=== PATIENT | female | born 1955 | race Caucasian/White ===

== ENCOUNTER 2018-07-20 13:12 | Emergency (ER) | payer OTHER ==
[~2018-07-20] VITALS: Ht 162.6 cm; Wt 57.9 kg
[2018-07-20 13:24] VITALS: Ht 162.6 cm; Wt 57.9 kg
[2018-07-20] MEDS ORDERED: morphine 4 MG/ML VIAL IV STA (16:29)
[2018-07-20] MEDS ORDERED: ONDANSETRON 4 MG INJ IV STA (16:29)
[2018-07-20] MEDS ORDERED: ASPI-903 PO (17:47)
[2018-07-20] MEDS ORDERED: CALC500T11 PO (17:47)
[2018-07-20] MEDS ORDERED: ALEN70TA5 PO (17:48)
[2018-07-20] MEDS ORDERED: IBUP-1545 PO (17:48)
[2018-07-20] MEDS ORDERED: SENN-120 PO (17:59)
[2018-07-20] MEDS ORDERED: DOCU-144 PO (17:59)
--- NOTE | 2018-07-20 18:01 | ERD ---
ER Documentation Chief Complaint Chief Complaint rt upper abd pain x 10 days denies n/v/d , sent by pmd HPI Patient is a 63-year-old female with no medical problems who presents with abdominal pain. She was sent by her primary doctor Dr. Mckinley for workup. She has had right upper quadrant abdominal pain for the past 10 days. The pain is been sharp and constant. The patient has no vomiting or diarrhea. She has no fevers. She has had no treatment for the pain as of yet. Upon review of old medical records this is the patient's first visit to the emergency department. ROS All systems reviewed and are negative except as per history of present illness. Medications Home Meds Active Scripts Sennosides* (Senna Lax*) 8.6 Mg Tablet, 1 TAB PO DAILY, #30 TAB Prov:DON BEAUCHAMP MD 07/20/18 Docusate Sodium* (Colace*) 100 Mg Capsule, 100 MG PO TID, #30 CAP Prov:DON BEAUCHAMP MD 07/20/18 Reported Medications Alendronate Sodium* (Fosamax*) 70 Mg Tablet, 70 MG PO Q7D, #4 TAB 07/20/18 Ibuprofen* (Ibuprofen*) 800 Mg Tab, 800 MG PO Q6H PRN for PAIN, TAB 07/20/18 Calcium Carbonate (Oysco-500) 500 Mg Tablet, 500 MG PO DAILY, TAB 07/20/18 Aspirin* (Aspirin* Chew) 81 Mg Tab.chew, 81 MG PO DAILY, TAB.CHEW 07/20/18 Allergies Allergies: Coded Allergies: No Known Allergy (Unverified , 07/20/18) PMhx/Soc Medical and Surgical Hx: pt denies Medical Hx, pt denies Surgical Hx Hx Alcohol Use: No Hx Substance Use: No Hx Tobacco Use: No Smoking Status: Never smoker FmHx Family History: No diabetes Physical Exam Vitals Vital Signs Date Temp Pulse Resp B/P (MAP) Pulse Ox O2 O2 Flow FiO2 Time Delivery Rate 07/20/18 97.9 64 18 177/84 97 13:24 (115) Physical Exam Const: Moderate distress secondary to pain Head: Atraumatic Eyes: Normal Conjunctiva ENT: Normal External Ears, Nose and Mouth. Neck: Full range of motion. No meningismus. Resp: Clear to auscultation bilaterally Cardio: Regular rate and rhythm, no murmurs Abd: Soft, right upper quadrant and right lower quadrant tenderness to palp ation without rebound or guarding Skin: No petechiae or rashes Back: No midline or flank tenderness Ext: No cyanosis, or edema Neur: Awake and alert Psych: Normal Mood and Affect Result Diagram: 07/20/18 1640 07/20/18 1640 Results 24 hrs Laboratory Tests Test 07/20/18 16:40 07/20/18 16:42 White Blood Count 7.8 10^3/ul Red Blood Count 4.43 10^6/ul Hemoglobin 13.2 g/dl Hematocrit 40.9 % Mean Corpuscular Volume 92.3 fl Mean Corpuscular Hemoglobin 29.8 pg Mean Corpuscular Hemoglobin Concent 32.3 g/dl Red Cell Distribution Width 12.8 % Platelet Count 226 10^3/UL Mean Platelet Volume 10.2 fl Immature Granulocytes % 0.300 % Neutrophils % 53.6 % Lymphocytes % 38.4 % Monocytes % 5.8 % Eosinophils % 1.3 % Basophils % 0.6 % Nucleated Red Blood Cells % 0.0 /100WBC Immature Granulocytes # 0.020 10^3/ul Neutrophils # 4.2 10^3/ul Lymphocytes # 3.0 10^3/ul Monocytes # 0.5 10^3/ul Eosinophils # 0.1 10^3/ul Basophils # 0.1 10^3/ul Nucleated Red Blood Cells # 0.0 10^3/ul Sodium Level 140 mmol/L Potassium Level 3.8 mmol/L Chloride Level 103 mmol/L Carbon Dioxide Level 32 mmol/L Anion Gap 5 Blood Urea Nitrogen 11 mg/dl Creatinine 0.58 mg/dl Est Glomerular Filtrat Rate mL/min > 60 mL/min Glucose Level 94 mg/dl Calcium Level 9.5 mg/dl Total Bilirubin 0.2 mg/dl Direct Bilirubin 0.00 mg/dl Indirect Bilirubin 0.2 mg/dl Aspartate Amino Transf (AST/SGOT) 35 IU/L Alanine Aminotransferase (ALT/SGPT) 26 IU/L Alkaline Phosphatase 58 IU/L Troponin I < 0.012 ng/ml Total Protein 7.5 g/dl Albumin 4.4 g/dl Globulin 3.10 g/dl Albumin/Globulin Ratio 1.41 Lipase 54 U/L Urine Color STRAW Urine Clarity CLEAR Urine pH 6.0 Urine Specific [place] 1.010 Urine Ketones NEGATIVE mg/dL Urine Nitrite NEGATIVE mg/dL Urine Bilirubin NEGATIVE mg/dL Urine Urobilinogen NEGATIVE mg/dL Urine Leukocyte Esterase NEGATIVE Laverne/ul Urine Hemoglobin NEGATIVE mg/dL Urine Glucose NEGATIVE mg/dL Urine Total Protein NEGATIVE mg/dl Current Medications Medications Dose Sig/Marlee Start Time Status Last (Trade) Ordered Route PRN Stop Time Admin Dose Reason Admin Morphine 4 mg ONCE STAT 07/20/18 DC 07/20/18 Sulfate IV 16:29 16:44 (morphine) 07/20/18 16:30 Ondansetron 4 mg ONCE STAT 07/20/18 DC 07/20/18 HCl (Zofran IV 16:29 16:44 Inj) 07/20/18 16:30 Procedures/MDM EKG read by me: Rate/Rhythm: Sinus bradycardia at a rate of 54 Intervals: Normal Impression: Bradycardia without ischemia CT abdomen pelvis read by radiology. Ultrasound of the gallbladder read by radiology. Patient is a 63-year-old female who presents with abdominal pain. She has had an appendectomy in the past. Laboratory studies are normal. EKG shows no sign of ischemia. CT scan of the abdomen pelvis was basically negative. Ultrasound of the gallbladder was negative. At this point I doubt appendicitis, cholecystitis, pancreatitis, or bowel obstruction. I believe outpatient hammad remy is appropriate at this point. The patient had constipation on CT scan so I will give a prescription for senna and Colace. She can take Tylenol or ibuprofen for pain. She can return for any worsening symptoms. She was provided with copies of her laboratory studies and imaging test prior to discharge. Departure Diagnosis: Primary Impression: Constipation Constipation type: unspecified constipation type Qualified Codes: K59.00 - Constipation, unspecified Additional Impression: Abdominal pain Abdominal location: generalized Qualified Codes: R10.84 - Generalized abdominal pain Condition: Fair Patient Instructions: Abdominal Pain, Constipation (Adult) Additional Instructions: Call your primary care doctor TOMORROW for an appointment during the next 1-2 days.See the doctor sooner or return here if your condition worsens before your appointment time. DON BEAUCHAMP MD Jul 20, 2018 18:01
[2018-07-20 18:26] VITALS: BP 126/74; PULSE 60; RESP 20
== END 2018-07-20 18:31 | disposition home or self-care (01) ==
LOC: E/R 13:12
DX: K59.00 Constipation, unspecified (principal); Z79.82 Long term (current) use of aspirin
CPT/HCPCS: 36415; 74176; 76705; 80053; 81003; 83690; 84484; 85025; 96374; 96375; J2270; J2405; Z7502; 93005